=== PATIENT | male | born 1945 | race Caucasian/White ===

== ENCOUNTER 2017-03-20 02:21 | Emergency (ER) | payer MEDICARE, OTHER ==
[~2017-03-20] VITALS: Ht 180.3 cm; Wt 102.3 kg
[~2017-03-20 02:21] MED LIST: ASP81TEC PO; GLYB2.5T5 PO; HCTZ25 PO; MTF850T PO; SIMV40TA5 PO; [UNRECOGNIZED DRUG - CODE] PO
[2017-03-20 02:24] VITALS: BP 161/97; PULSE 84; RESP 16; O2SAT 99
--- NOTE | 2017-03-20 02:35 | ED.REPORT ---
HPI-Abd Pain M 40 and Over Date of Service March 20, 2017 ED Provider: William Henry MD Pt is a 71 y.o. male with a hx of kidney stones, DM, and HTN who presents to the ED c/o severe right sided flank pain onset 1 hour prior to arrival. Pt denies fever, dysuria, nausea, and vomiting. Nursing Notes Stated Complaint: POSSIBLE KIDNEY STONES Chief Complaint: Male Abdominal Pain Nursing Notes Reviewed: Yes Allergies: Coded Allergies: No Known Allergies (Verified , 10/22/13) Scheduled Glyburide (Glyburide) 2.5 Mg Tablet 2.5 MG PO BIDAC Metformin (Metformin) 850 Mg Tablet 850 MG PO BID Simvastatin (Simvastatin) 40 Mg Tablet 40 MG PO HS Tamsulosin (Flomax) 0.4 Mg Capsule 0.4 MG PO DAILY Telmisartan (Micardis) 40 Mg Tablet 40 MG PO DAILY Scheduled PRN Hydrocodone-Acetaminophen 5-300 mg (Hydrocodone-Acetaminophen 5-300 mg) 1 Each Tablet 1 TABLET PO Q4H PRN PRN For Pain Ondansetron (Ondansetron) 4 Mg Tablet 4 MG PO Q4H PRN PRN For Nausea General Time Seen by MD: 02:33 Chief Complaint Flank pain right Hx Obtained From: Patient Arrived By: Walk-in Sudden in Onset?: Yes Onset Occurred: 1 - 4 hours ago Symptom Duration: Since onset Location: : Flank right Quality: Painful Severity: Current: Severe Similar Sx Previous: Yes Past Medical History Past Medical History Kidney stones Lithotripsy Reports: Diabetes mellitus, Hypertension Past Surgical History Knee surgery Reports: Appendectomy, Cholecystectomy Smoking History Never Smoker Social History Alcohol Use: Denies alcohol use Drug Use: Denies drug use Review of Systems Constitutional: Denies: Fever GI: Denies: Nausea, Vomiting Male: Reports Flank pain, Denies Dysuria Complete sys rev & neg: except as marked. Physical Exam Initial Vital Signs Vital Signs (First) Date Time Temp Pulse Resp B/P Pulse Ox O2 Delivery O2 Flow Rate FiO2 03/20/17 02:24 36.3 84 16 161/97 99 Room Air Initial VS: Reviewed, Vital signs abnormal General/Constitutional: Awake, Alert, Well appearing, Well developed, Well hydrated, Well nourished, Not toxic appearing Appearance / Presentation: Positive: In pain, Uncomfortable Respiratory / Chest: Atraumatic, Breath sounds NL, Breath sounds = bilat, No respiratory distress Cardiovascular: Heart rate NL, Regular rhythm, Heart sounds NL, Peripheral circulation NL Abdomen: Atraumatic, Soft, No distention Tenderness/Guarding/Rebound: Positive: Tender RLQ... Back: Atraumatic Right CVA tenderness Interpretation & Diagnostics Lab Results Interpretation Result Diagram: 03/20/17 0250 03/20/17 0250 Test 03/20/17 02:50 White Blood Count 9.5th/mm3 (3.8-10.1) Red Blood Count 4.90mil/mm3 (4.40-5.80) Hemoglobin 13.8g/dL (13.8-17.2) Hematocrit 41.9% (41.0-50.0) Mean Corpuscular Volume 85.5fL (81-100) Mean Corpuscular Hemoglobin 28.2pg (27.0-35.0) Mean Corpuscular Hemoglobin Concent 32.9% (32.0-37.0) Red Cell Distribution Width 14.4% (12.3-15.4) Platelet Count 205bil/L (150-400) Neutrophils (%) (Auto) 64.1% (40-74) Lymphocytes (%) (Auto) 23.3% (14-46) Monocytes (%) (Auto) 8.4% (4-12) Eosinophils (%) (Auto) 3.2% (0-5) Basophils (%) (Auto) 0.8% (0-3) Sodium Level 137mEq/L (134-144) Potassium Level 3.8mEq/L (3.5-5.2) Chloride Level 101mEq/L (97-108) Carbon Dioxide Level 20mmol/L (18-29) Blood Urea Nitrogen 19mg/dL (8-27) Creatinine 1.31mg/dL (0.76-1.27) Estimat Glomerular Filtration Rate 57mL/min (>59) Glucose Level 216mg/dL (60-99) Calcium Level 9.3mg/dL (8.5-10.1) Magnesium Level 1.8mg/dL (1.6-2.6) Total Bilirubin 0.3mg/dL (0.0-1.2) Aspartate Amino Transf (AST/SGOT) 16U/L (0-50) Alanine Aminotransferase (ALT/SGPT) 18U/L (0-44) Alkaline Phosphatase 79U/L (25-160) Total Protein 7.5g/dL (6.4-8.4) Albumin 4.3g/dL (3.4-5.0) Lipase 39U/L (13-60) Hold Chopra Top Tube Received (Received) Lab values outside NL range: no clinical significance. Lab Results Interpretation: Mildly elevated nonfasting glucose, mildly elevated creatinine CT Abd / Pelvis Interpretation CONCLUSION: Bilateral nephrolithiasis. 2mm obstructing stone in the proximal right ureter with associated moderate right hydronephrosis. Radiologist: Lex Fishman MD Re-Eval/Medical Decision Med Decision/Clinical Course 71-year-old male with history of kidney stones presents with right flank pain. He has a 2 mm obstructing stone in the proximal right ureter. He was treated with pain and nausea medication and tamsulosin. He will be discharged home. He will strain his urine. He will follow up with urology as needed for worsening symptoms or if the stone does not pass.. Source of Hx: Old records Time of Eval: 04:34 Re-Evaluation/Progress Note: Pt rechecked. Pt is feeling comfortable. Discussed imaging and plan for discharge, pt understands and agrees with plan. Counseled Regarding: Diagnosis, Lab results, Need for follow-up, When/why to return to ED Discharge & Departure Primary Impression: Ureteral stone Additional Impression: Nephrolithiasis Disposition: Home Vital Signs - All Vital Signs Date Time Temp Pulse Resp B/P Pulse Ox O2 Delivery O2 Flow Rate FiO2 03/20/17 05:12 77 18 154/92 98 Room Air 03/20/17 02:24 36.3 84 16 161/97 99 Room Air )( All Prior VS Reviewed: Yes Condition: Improved Patient Instructions: Renal Colic (ED) Additional Instructions: You have a small stone at the upper end of the right ureter. It is small enough it might pass on its own. Vicodin for pain. Ondansetron for nausea. Flomax to help relax the ureter. Drink plenty of fluids. If it doesn't pass you will need to follow up with urology. Referrals: Kwesi Almaraz MD (PCP) Riaz Ruiz MD Scribe Attestation Portions of this note were transcribed by Taco Pardo. Dr.Leibrand Catie personally performed the history, physical exam and medical decision-making; I reviewed and confirmed the accuracy of the information in the transcribed note. Signed by: Bronson Macias, 03/20/17 and 0437 copies to: Kwesi Almaraz MD, Howard L MD March 20, 2017 02:35 TACO PARDO March 20, 2017 02:40
[2017-03-20] MEDS ORDERED: Ketorolac 15 mg/mL Inj IVPUSH ONE (02:40)
[2017-03-20] MEDS ORDERED: HYDROmorphone 0.5 mg/0.5 mL iSecure Syringe IVPUSH PRN (02:40)
[2017-03-20] MEDS ORDERED: Ondansetron 2 mg/mL 2 mL Inj IVPUSH PRN (02:40)
[2017-03-20 03:00] LABS: BASOPHILS % (AUTO) 0.8 % (0-3); EOSINOPHILS % (AUTO) 3.2 % (0-5); MONOCYTES % (AUTO) 8.4 % (4-12); Mean Corpuscular Hemoglobin 28.2 pg (27.0-35.0); Mean Corpuscular Volume 85.5 fL (81-100); NEUTROPHILS % (AUTO) 64.1 % (40-74); Platelet Count 205 bil/L (150-400)
[2017-03-20 03:18] LABS: Magnesium 1.8 mg/dL (1.6-2.6)
[2017-03-20] MEDS ORDERED: _HYDROcodone/APAP 5-325 mg Tablet PO PRN (04:35)
[2017-03-20] MEDS ORDERED: TAMS0.4C98 PO ×2 (04:40→16:42)
[2017-03-20] MEDS ORDERED: _Ondansetron ODT 4 mg Tablet PO PRN (04:40)
[2017-03-20] MEDS ORDERED: ONDA4SOL PO (04:40)
[2017-03-20 05:12] VITALS: BP 154/92; PULSE 77; RESP 18; O2SAT 98
--- NOTE | 2017-03-20 08:09 | DRSVH ---
PROCEDURE: CT KUB ([id number]) INDICATIONS: right flank pain TECHNIQUE: Noncontrast 5 mm thick sections acquired from the diaphragms to the symphysis. 5 mm thick coronal an d sagittal reformats were then performed. For radiation dose reduction, the following was used: aut omated exposure control, adjustment of mA and/or kV according to patient size. COMPARISON: [facility], CT, KUB - CT ([facility]), 12/16/2014, 14:22. FINDINGS: Image quality: Excellent. Lung bases: Lung bases are clear. Heart size is normal. Urinary system: Both kidneys are normal in size. In the left kidney there is a 2-3 mm stone inferio rly centrally and nonobstructing. In the right kidney in the upper pole centrally and nonobstructing is a 4.5 mm stone. At the midpole nonobstructing is a 5 mm stone. At the right ureterovesical junctio n is a 3 mm stone causing mild right hydronephrosis and proximal hydroureter as well as some strandin g around the right kidney.. Both ureters appear non-dilated throughout their expected courses. Blad estela wall thickness is hypertrophied; no calcified bladder stones. Prostate is enlarged with prominen t calcifications. Other solid organs: Liver and spleen are normal in size. Gallbladder has been removed. Pancreas is normal in contours. No adrenal nodules. Peritoneum and bowel: Unenhanced bowel loops demonstrate normal wall thickness and caliber. No free fluid or air. Nodes and vessels: No retroperitoneal or mesenteric adenopathy by size criteria. Aorta and inferior vena cava are normal in caliber. Abdominal wall: No ventral hernias. Pelvis: No free pelvic fluid. No inguinal hernias or adenopathy. Bones: No suspicious bony lesions. No vertebral body compression fractures. IMPRESSION: 1. Obstruction is again occurring at the right renal pelvis ureter junction. This time by 3 mm stone. 2. Within the right kidney are 2 central nonobstructing stones of approximately 5 mm. On the left is a central nonobstructing stone approximately 3 mm. 3. Bladder wall hypertrophy of prostate enlargement as before and unchanged. Previous cholecystectomy . Dictated by: Kevon Fine M.D. on 03/20/2017 at 7:55 Approved by: Kevon Fine M.D. on 03/20/2017 at 8:07
[2017-03-20] MEDS ORDERED: GLYB2.5T4 PO (16:42)
[2017-03-20] MEDS ORDERED: ONDA-53 PO (16:42)
[2017-03-20] MEDS ORDERED: METF850T2 PO (16:42)
[2017-03-20] MEDS ORDERED: TELM40TA PO (16:42)
[2017-03-20] MEDS ORDERED: HYDR-3090 PO (16:42)
[2017-03-20] MEDS ORDERED: SIMV40TA5 PO (16:42)
== END 2017-03-20 05:13 | disposition home or self-care (01) ==
LOC: SED 02:21
DX: N13.2 Hydronephrosis with renal and ureteral calculous obstruction (principal); E11.9 Type 2 diabetes mellitus without complications; I10 Essential (primary) hypertension; Z87.442 Personal history of urinary calculi; Z79.84 Long term (current) use of oral hypoglycemic drugs
CPT/HCPCS: 36415; 74176; 80053; 83690; 83735; 85025; 96361; 96374; 96375; 99285; J1170; J1885; J2405

== ENCOUNTER 2017-03-22 13:14 | Day surgery (SDC) | payer MEDICARE, OTHER ==
[~2017-03-22] VITALS: Ht 180.3 cm; Wt 102.0 kg
[2017-03-22] VITALS (8 sets, daily range): BP systolic 127–146; BP diastolic 77–87; PULSE 70–95; RESP 13–16; O2SAT 93–98
[~2017-03-22 13:14] MED LIST changes: -ASP81TEC PO; +Acetaminophen IV 1,000 MG in IV Premix 1 EACH IV ONE; +CeFAZolin Inj 2 GM in IV Premix 1 EACH IV ONE; +GLYB2.5T4 PO; -GLYB2.5T5 PO; -HCTZ25 PO; +HYDR-3090 PO; +Lactated Ringer's 1,000 ML IV SCH; +METF850T2 PO; -MTF850T PO; +ONDA-53 PO; +TAMS0.4C98 PO; +TELM40TA PO; -[UNRECOGNIZED DRUG - CODE] PO
[2017-03-22] MEDS ORDERED: fentaNYL-PF 50 mCg/mL 2 mL Inj ONE (13:15)
[2017-03-22] MEDS ORDERED: EPHEDrine/NS 5 mg/mL 5 mL Syringe ONE (13:15)
[2017-03-22] MEDS ORDERED: Ondansetron 2 mg/mL 2 mL Inj ONE (13:15)
[2017-03-22] MEDS ORDERED: Propofol 10,000 mCg/mL 20 mL Inj ONE (13:15)
[2017-03-22] MEDS ORDERED: Phenylephrine 10,000 mCg/mL Inj ONE (13:15)
--- NOTE | 2017-03-22 13:34 | DRSVH ---
PROCEDURE: X-RAY KUB ([id number]) INDICATIONS: KIDNEY STONE TECHNIQUE: One view of the abdomen acquired. COMPARISON: [facility], CR, XR KUB, 03/20/2017, 10:19. [facility], CT, CT KU B, 03/20/2017, 2:58. FINDINGS: Surgical changes and devices: Cholecystectomy clips Bowel: Bowel gas pattern is normal. Soft tissues: Faint calcifications projecting over the kidneys bilaterally as was seen on prior exam. No definite stones project over the expected course of the ureters. Prostate calcifications are note d as well as left iliac bone island. Visualized solid organ contours appear normal in size. Bones: No suspicious bony lesions. IMPRESSION: 1. Small bilateral renal stones unchanged compared to the prior examination. No definite new radiopa que renal stone seen. Dictated by: Markus Ryan RRAbimbola Interpreted: Kevon Fine MD on 03/22/2017 at 13:32 Transcribed by: MARINA on 03/22/2017 at 13:33 Approved by: Kevon Fine M.D. on 03/22/2017 at 13:54
[2017-03-22] MEDS ORDERED: CeFAZolin Inj 2 gm / 50mL D5W IV ONE (13:43)
[2017-03-22] MEDS ORDERED: Lactated Ringer's 1,000 ML IV ONE (14:00)
--- NOTE | 2017-03-22 14:58 | PCM.HPANE ---
Patient Data Date of Service: March 22, 2017 Surgeon Admitting Provider: Attending Provider:Riaz Ruiz MD Primary Care Physician:Kwesi Almaraz MD Other Provider:Kadie Harrison Anesthesia Reason for Visit Right Ureteral Stone Ht/WT & BMI Height (Feet): 5 Height (Inches): 11.00 Weight (Kilograms): 102.050 Body Mass Index 31.00 Allergies Coded Allergies: No Known Allergies (Verified , 10/22/13) Past Anesthesia History Anesthesia History: Denies:: Abnormal Airway, Anesthesia Reactions, Difficult Intubation, Fam Anesthesia Reaction, Fam Malignant Hypertherm, Malignant Hyperthermia Diabetes History Hx Diabetes?: Yes Type of Diabetes: Type II Glycemic Control: Oral Medication MRSA MRSA: No Medications Blood Thinner: Aspirin Hypertension Medication: Yes Home Meds Incl Beta Hali: No Reported Medications Hydrocodone-Acetaminophen 5-300 mg 1 Each Tablet1 Tablet PO Q4H PRN For Pain Ref 0 03/20/17 Glyburide 2.5 Mg Tablet2.5 Mg PO BIDAC 30 Days Ref 0 03/20/17 Tamsulosin (Flomax)0.4 Mg Capsule0.4 Mg PO DAILY Ref 0 03/20/17 Telmisartan (Micardis)40 Mg [id number] Mg PO DAILY 03/20/17 Simvastatin 40 Mg [id number] Mg PO HS 30 Days Ref 0 03/20/17 Ondansetron 4 Mg Tablet4 Mg PO Q4H PRN For Nausea 03/20/17 Metformin 850 Mg [id number] Mg PO BID Ref 0 03/20/17 Discontinued Reported Medications Glyburide-Expunged Drug, Do Not Renew! 2.5 Mg Tablet2.5 Mg PO 07/17/13 Aspirin-Expunged Drug, Do Not Renew! (Aspirin EC-Expunged Drug, Do Not Renew!) 81 Mg Vuvrvf25 Mg PO DAILY DO NOT CRUSH 07/17/13 TELMISARTAN-Expunged Drug, Do Not Renew! (Micardis-Expunged Drug, Do Not Renew!) 40 Mg Tab40 Mg PO DAILY 07/17/13 HCTZ-Expunged Drug, Do Not Renew! (Hydrodiuril-Expunged Drug, Do Not Renew!)25 Mg Xgxhxy26 Mg PO DAILY 07/17/13 Simvastatin-Expunged Drug, Choose New Med! 40 Mg Xtqmfq85 Mg PO HS 07/17/13 Metformin-Expunged Drug, Do Not Renew! 850 Mg Tablet1 Tab PO DAILY #30 TAB TAKE WITH EVENING MEAL 07/17/13 Discontinued Scripts Ondansetron 4 Mg/5 Ml Solution4 Mg PO DAILY #4 ML Prov:William Henry MD 03/20/17 Tamsulosin (Flomax)0.4 Mg Capsule0.4 Mg PO DAILY #4 CAPSULE Ref 0 Prov:William Henry MD 03/20/17 History History of ENT Problems?: Yes HEENT History: Positive for:: Hearing Problem Denies:: Abnormal Airway Cataracts Difficult Intubation Dysphagia Glaucoma Sinus Problem Denture Type: None Teeth Condition: Within Normal Limits Hx of Heart Problems?: Yes Cardiovascular History: Positive for:: Edema Hypertension Denies:: AICD Atrial Fibrillation Cardiac Surgery Chest Pain Congestive Heart Failure Heart Murmur Irregular Heartbeat Pacemaker Thrombophlebitis Valvular Heart Disease Hx of Respiratory Problem?: No Respiratory History: Denies:: Asthma COPD Cough Hemoptysis Oxygen Administration Pneumonia Tuberculosis Use of C-PAP Machine Hx Neurologic Problems?: No Neurological History: Positive for:: Dizziness Denies:: Alzheimer's Disease CVA Dementia Headaches Multiple Sclerosis Parkinson's Disease Seizures TIA Hx of GI Problems?: Yes Hx of Problems?: Yes Genitourinary History: Positive for:: Kidney Stones (right ureteral ) Denies:: Urinary Tract Infection Male Hx: Denies:: Prostate Problems Scrotal Mass Testicular Surgery Skin History: Denies:: History Skin Disorders? 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) Osteoarthritis Denies:: Back Injury Fibromyalgia Musculoskeletal Trauma Myasthenia Gravis Rheumatoid Arthritis Systemic Lupus Hx of Psycho/Social Problems?: No Psycho Social History: Denies:: Anxiety Bipolar Disorder Hx Depression Suicide Attempt Hx Surgeries?: Yes (right partial knee, raysa, appe) Hx Any Other Health Problems?: Yes Other History: Positive for:: Cancer (BCC facial) Hospitalization Denies:: Endocrine Disease Thyroid Disease History Blood Transfusions: Positive for:: Accept Blood Products? Denies:: Blood Transfusions Hx Diabetes: Yes Hx Alcohol Use: NoHx Substance Use: No Smoking Status: Never Smoker Have You Smoked inLast 12 mo: No Stop/Bang P-Blood Pressure: treated: Yes B- Body Mass Index > 35 kg/m2: No A- Age over 50: Yes N- Neck Large Circumference: No G- Gender Male: Yes GAMALIEL Risk Assessment: High Risk, =/>3 Yes GAMALIEL Category 4 OutPt Procedure: Yes Risk Assessment Category Category 1A: Patient has history of documented sleep apnea, and HAS NOT received any narcotic, sedative or anesthesia administration during this stay. Category 1B: Patient has history of documented sleep apnea, and HAS received any narcotic , sedative or anesthesia administration during this stay Category 2: Patient has SUSPECTED Obstructive Sleep Apnea, and HAS received any narcotic , sedative or anesthesia administration during this stay. Category 3: Patient has SUSPECTED Obstructive Sleep Apnea and HAS NOT received narcotic, sedative or anesthesia administration during this stay. Category 4: Outpatient in Procedural Areas with known sleep apnea or who screen positive for High Risk via the STOP/BANG questionnaire. Exam Exam Vital Signs Vital Signs Date Time Temp Pulse Resp B/P Pulse Ox O2 Delivery O2 Flow Rate FiO2 03/22/17 13:51 36.6 70 14 146/78 96 Room Air General Appearance: Alert, Oriented X3, Cooperative, No Acute Distress HEENT/AIRWAY: MP 2 Lungs: Clear to Auscultation, Normal Air Movement Heart: Exam Unremarkable, Regular Rate/Rhythm, No Murmurs/Rubs/Gallops Meds/Labs/Diagnostics Admission Meds Current Medications Lactated Ringer's (Lr) 1,000 ml @ ud STK-MED ONCE IV Last administered on t 14:00; Start 03/22/17 at 14:00; Stop 03/22/17 at 14:01; Status DC Plan Impression Patient chart reviewed, patient interviewed and anesthestic plan with risks, benefits, and alternatives discussed, and informed consent obtained. NPO per Anesth. Guidelines: Yes ASA Physical Status: ASA2 Mod Systemic Disease Anesthetic Plan: GA Bene/Risks/Altern/Consents: Yes HP Complete Prior to Induction: Yes Juarez Yap MD March 22, 2017 14:58
[2017-03-22] MEDS ORDERED: Lactated Ringer's 1,000 ML IV SCH (16:18)
[2017-03-22] MEDS ORDERED: Lactated Ringer's 500 ML IV PRN (16:18)
[2017-03-22] MEDS ORDERED: fentaNYL-PF 50 mCg/mL 2 mL Inj IVPUSH PRN (16:20)
[2017-03-22] MEDS ORDERED: Phenylephrine 10,000 mCg/mL Inj IVPUSH PRN (16:20)
[2017-03-22] MEDS ORDERED: hydrALAZINE 20 mg/mL Inj IVPUSH PRN (16:20)
[2017-03-22] MEDS ORDERED: Ondansetron 2 mg/mL 2 mL Inj IVPUSH PRN (16:20)
[2017-03-22] MEDS ORDERED: Labetalol 5 mg/mL 4 mL Inj IV PRN (16:20)
[2017-03-22] MEDS ORDERED: EPHEDrine Sulfate 50 mg/mL Inj IVPUSH PRN (16:20)
[2017-03-22] MEDS ORDERED: Atropine 0.4 mg/mL Inj IVPUSH PRN (16:20)
[2017-03-22] MEDS ORDERED: EPHEDrine Sulfate 50 mg/mL Inj IM PRN (16:20)
[2017-03-22] MEDS ORDERED: HYDROmorphone 1 mg/mL Inj IVPUSH PRN (16:20)
[2017-03-22] MEDS ORDERED: Furosemide 10 mg/mL 2 mL Inj IV ONE (16:50)
--- NOTE | 2017-03-23 | OP ---
[address] [address] OPERATIVE REPORT PATIENT: GEOFFREY MORLEY : 1945 MR#: [id number] ADMIT: 03/22/2017 JOB ID: [id number] DATE OF SURGERY: 03/22/2017 SURGEON: Riaz Ruiz MD PREOPERATIVE DIAGNOSIS(ES): 1. Right renal colic. 2. A 3 x5 mm right mid ureteral calculus. 3. Right nephrolithiasis. 4. History of nephrolithiasis. POSTOPERATIVE DIAGNOSIS(ES): 1. Right renal colic. 2. A 3 x5 mm right mid ureteral calculus. 3. Right nephrolithiasis. 4. History of nephrolithiasis. OPERATION PERFORMED: 1. Cystoscopy, right retrograde pyelogram. 2. Right extracorporeal shock wave lithotripsy (maximal power of 5.0 x 2500 shocks. ANESTHESIOLOGIST: Juarez Yap MD ANESTHESIA: General. FINDINGS: The stone could not be identified with certainty with plain radiography or intraoperative fluoroscopy during patient respiration. Therefore, the patient was repositioned in semilithotomy and subsequent retrograde pyelogram identified the stone allowing localization and subsequent treatment. PROCEDURE SUMMARY: The patient was positioned supine and was administered general anesthesia. The above-described stone was sought via radiography and intraoperative fluoroscopy with the findings as described above. Next, he was repositioned in semi lithotomy and lower abdomen, genitalia, and groin were prepped and draped in sterile fashion. 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 External sphincter was intact. Prostate 4-4.5 cm length with very elevated median bar. Bladder 1+ trabeculation. Normal orifices bilaterally. There was a tiny evonne of clot lying dependently on the floor of the bladder, otherwise unremarkable. A 5-Cymro Pollack catheter was then inserted in the right ureteral orifice and advanced appropriate 5 cm. Retrograde pyelography was then performed and identified an abrupt cut-off with proximal hydronephrosis adjacent to the L3-L4 interspace. The catheter was secured to the penile glans with an OpSite. The stone was further localized. Lithotripsy was commenced at minimal power level for a total of 200 shocks. A pause was then performed for 2 minutes after which lithotripsy was again commenced. The location of the stone was relocalized numerous times throughout the case with intermittent retrograde pyelography. At 2500 shocks, contrast seemed to move fairly freely through the treated area, save for probable mucosal and ureteral wall edema in the region. The patient showed evidence of adequate contrast clearance from the upper tract. Treatment was then halted and the patient was repositioned in supine, was awakened, transferred to the [facility], and transferred to recovery in stable condition. He tolerated the procedure well.
--- NOTE | 2017-03-23 07:28 | PCM.ANEP1 ---
Post Anesthesia Phase 1 PACU Phase 1 Assessment Date of Service: March 22, 2017 Vital Signs 1715 BP 128/79 HR 91 Temp 36.6 C RR 16 SpO2 97% on RA Anesthetic Administered: GA Level of Alertness: Awake, talking TRISTAN's with Equal Strength: Yes Pain: No Nausea or Vomiting: No Oxygen Delivery: Room Air Lungs: Clear to Auscultation, Normal Air Movement Dermatome Level: Full Sensation Complications: No Follow up Care: No Juarez Yap MD March 23, 2017 07:28
== END 2017-03-22 23:59 | disposition home or self-care (01) ==
LOC: SAS 13:14
PROVIDERS: ATTEND Specialist
DX: N20.2 Calculus of kidney with calculus of ureter (principal); I10 Essential (primary) hypertension; E11.9 Type 2 diabetes mellitus without complications; M19.90 Unspecified osteoarthritis, unspecified site; Z85.828 Personal history of other malignant neoplasm of skin; Z79.84 Long term (current) use of oral hypoglycemic drugs; Z79.82 Long term (current) use of aspirin; Z96.652 Presence of left artificial knee joint; Z87.442 Personal history of urinary calculi
CPT/HCPCS: 50590; 52005; 74000; J0131; J0690; J1940; J2370; J2405; J3010; J7120

== ENCOUNTER 2017-06-06 07:10 | Emergency (ER) | payer MEDICARE, OTHER ==
[~2017-06-06] VITALS: Ht 180.3 cm; Wt 104.5 kg
[~2017-06-06 07:10] MED LIST changes: -Acetaminophen IV 1,000 MG in IV Premix 1 EACH IV ONE; -CeFAZolin Inj 2 GM in IV Premix 1 EACH IV ONE; -Lactated Ringer's 1,000 ML IV SCH
[2017-06-06 07:13] VITALS: BP 172/97; PULSE 73; RESP 17
[2017-06-06] MEDS ORDERED: 0.9% Sodium Chloride 1,000 ML IV ONE (07:42)
--- NOTE | 2017-06-06 07:42 | ED.REPORT ---
HPI-Abd Pain M 40 and Over Date of Service Jun 06, 2017 ED Provider: Vinh Nunn MD The pt is a 72 y/o male w/ a hx of diabetes mellitus, HTN and kidney stones presenting to the ED complaining of R sided flank pain onset 0300. He has also been experiencing vomiting. The pt last was seen for a R ureteral stone two and a half months ago on March 20 , and had it removed two days after that. Nursing Notes Stated Complaint: POSS KIDNEY STONES Chief Complaint: Male Abdominal Pain Nursing Notes Reviewed: Yes Allergies: Coded Allergies: No Known Allergies (Verified , 10/22/13) Scheduled Glyburide (Glyburide) 2.5 Mg Tablet 2.5 MG PO BIDAC Metformin (Metformin) 850 Mg Tablet 850 MG PO BID Simvastatin (Simvastatin) 40 Mg Tablet 40 MG PO HS Tamsulosin (Flomax) 0.4 Mg Capsule 0.4 MG PO DAILY Tamsulosin (Flomax) 0.4 Mg Capsule 0.4 MG PO DAILY Telmisartan (Micardis) 40 Mg Tablet 40 MG PO DAILY Scheduled PRN Hydrocodone-Acetaminophen 5-300 mg (Hydrocodone-Acetaminophen 5-300 mg) 1 Each Tablet 1 TABLET PO Q4H PRN PRN For Pain Hydrocodone-Acetaminophen 5-325 mg (Hydrocodone-Acetaminophen 5-325 mg) 1 Each Tablet 1 TABLET PO Q4H PRN PRN For Pain Ibuprofen (Ibuprofen) 800 Mg Tablet 800 MG PO TID PRN PRN For Pain Ondansetron (Ondansetron) 4 Mg Tablet 4 MG PO Q4H PRN PRN For Nausea General Time Seen by MD: 07:40 Chief Complaint Flank pain right Hx Obtained From: Patient Arrived By: Walk-in Sudden in Onset?: Yes Onset Occurred: 5 - 8 hours ago Symptom Duration: Since onset Location: : Flank right Recent Healthcare: No recent hospitalization, Recent doctor visit Similar Sx Previous: Yes Risk Factors )( AAA Risk Stratification Hypertension Risk factors reviewed Past Medical History Past Medical History Kidney stones Lithotripsy Reports: Diabetes mellitus, Hypertension Past Surgical History Knee surgery Reports: Appendectomy, Cholecystectomy Smoking History Never Smoker Social History Alcohol Use: Denies alcohol use Drug Use: Denies drug use Ambulatory Status Independent Review of Systems GI: Reports: Vomiting Male: Reports Flank pain (R side) Complete sys rev & neg: except as marked. Physical Exam Initial Vital Signs Vital Signs (First) Date Time Temp Pulse Resp B/P Pulse Ox O2 Delivery O2 Flow Rate FiO2 06/06/17 07:13 36 73 17 172/97 Room Air 06/06/17 11:28 98 Initial VS: Reviewed Head / Eyes: Atraumatic, Normocephalic, PERRL ENT: Mucous membranes moist, Conjunctiva normal, No scleral icterus Neck: Supple, Non-tender, Full range of motion Extremities: Vascular intact, Neuro intact, No swelling, No tenderness Skin: Warm, Dry, No cyanosis Neurologic: Alert, Oriented, Nonfocal Psychiatric: Mood/affect normal, Behavior normal, Normal thought content General/Constitutional: Awake, Alert Respiratory / Chest: Atraumatic, Breath sounds NL, Breath sounds = bilat, No respiratory distress, No rales, No rhonchi, No wheezing Cardiovascular: Heart rate NL, Regular rhythm, Heart sounds NL, No gallop, No murmurs, No rubs Abdomen: Soft, No guarding, No rebound Diffuse R sided abdominal tenderness Back: Full range of motion, No CVA tenderness Interpretation & Diagnostics CT KUB 1. A 5 mm obstructing stone in the proximal right ureter causing mild right hydronephrosis and marked right perinephric stranding. 2. Nephrolithiasis bilaterally. 3. Mild concentric thickening of bladder wall combined with enlarged prostate suggesting bladder outlet obstruction. 4. Diverticulosis. No evidence for active diverticulitis. Dictated by: Annette Betancourt M.D. on 06/06/2017 at 9:10 Approved by: Annette Betancourt M.D. on 06/06/2017 at 9:32 Lab Results Interpretation Result Diagram: 06/06/17 0725 06/06/17 0725 Test 06/06/17 07:25 06/06/17 08:05 06/06/17 10:08 White Blood Count 13.5th/mm3 (3.8-10.1) Red Blood Count 4.95mil/mm3 (4.40-5.80) Hemoglobin 13.9g/dL (13.8-17.2) Hematocrit 41.9% (41.0-50.0) Mean Corpuscular Volume 84.6fL (81-100) Mean Corpuscular Hemoglobin 28.1pg (27.0-35.0) Mean Corpuscular Hemoglobin Concent 33.2% (32.0-37.0) Red Cell Distribution Width 13.9% (12.3-15.4) Platelet Count 200bil/L (150-400) Neutrophils (%) (Auto) 80.8% (40-74) Lymphocytes (%) (Auto) 10.7% (14-46) Monocytes (%) (Auto) 7.6% (4-12) Eosinophils (%) (Auto) 0.5% (0-5) Basophils (%) (Auto) 0.2% (0-3) Sodium Level 140mEq/L (134-144) Potassium Level 4.1mEq/L (3.5-5.2) Chloride Level 101mEq/L (97-108) Carbon Dioxide Level 21mmol/L (18-29) Blood Urea Nitrogen 23mg/dL (8-27) Creatinine 1.43mg/dL (0.76-1.27) Estimat Glomerular Filtration Rate 51mL/min (>59) Glucose Level 218mg/dL (60-99) Calcium Level 9.3mg/dL (8.5-10.1) Magnesium Level 1.6mg/dL (1.6-2.6) Total Bilirubin 0.4mg/dL (0.0-1.2) Aspartate Amino Transf (AST/SGOT) 15U/L (0-50) Alanine Aminotransferase (ALT/SGPT) 16U/L (0-44) Alkaline Phosphatase 83U/L (25-160) Total Protein 7.3g/dL (6.4-8.4) Albumin 4.1g/dL (3.4-5.0) Lipase 37U/L (13-60) Lactic Acid Level 1.8mmol/L (0.4-2.0) Urine Color Yellow (YELLOW) Urine Appearance Hazy (CLEAR,HAZY) Urine pH 5.0 (5.0-8.0) Urine Specific [place] 1.025 (1.003-1.035) Urine Protein Negativemg/dL (NEG,TRACE) Urine Glucose (UA) Negativemg/dL (NEGATIVE) Urine Ketones Negativemg/dL (NEGATIVE) Urine Occult Blood Small (NEGATIVE) Urine Nitrite Negative (NEGATIVE) Urine Bilirubin Negative (NEGATIVE) Urine Urobilinogen Normalmg/dL (NORMAL) Urine Leukocyte Esterase Large (NEGATIVE) Urine RBC 0-2/hpf (0-2) Urine WBC 11-50/hpf (0-5) Urine Epithelial Cells Occasional/hpf (NONE-MOD) Urine Crystals None seen (NONE SEEN) Urine Bacteria None/hpf (NONE-FEW) Urine Hyaline Casts None/lpf (NONE) Urine Granular Casts None seen (NONE SEEN) Urine Waxy Casts None seen (NONE SEEN) Urine Red Blood Cell Casts None seen (NONE SEEN) Urine White Blood Cell Casts None seen (NONE SEEN) Urine Mucus None seen (None Seen) Urine Trichomonas None seen (NONE SEEN) Urine Yeast None (NONE SEEN) Urinalysis Comment None Urine Culture Reflexed Indicated Re-Eval/Medical Decision Med Decision/Clinical Course 72-year-old male history of kidney stones presenting with right flank pain. He has a 5 mm stone right proximal ureter. He is in and out cath shows white blood cells, negative nitrates, no bacteria. Discussed with Dr. [facility] who did not think the patient's urine represented infection and recommended discharge home with [place] with follow-up with urology as an outpatient. She will be discharged home with plans to follow-up with urology as well as primary doctor in the next couple days. Advised to return if he has any worsening pain, fevers, nausea vomiting, any other new or worsening symptoms. Source of Hx: Old records Time of Eval: 11:20 Re-Evaluation/Progress Note: Pt rechecked. Informed pt of plan for treatment. Pt understands and agrees with plan for treatment. F/U instructions and RTER warnings given. All questions addressed. Consultation : Referral / Consult Name: [facility] Call Returned at: 10:30 Microbiology Supervisor: Will see patient, Will see in office, Agrees with eval Counseled Regarding: Diagnosis, Lab results, Need for follow-up, When/why to return to ED Discharge & Departure Primary Impression: Kidney stone Disposition: Home Vital Signs - All Vital Signs Date Time Temp Pulse Resp B/P Pulse Ox O2 Delivery O2 Flow Rate FiO2 06/06/17 11:28 70 14 168/90 98 Room Air 06/06/17 07:13 36 73 17 172/97 Room Air )( All Prior VS Reviewed: Yes Condition: Stable Patient Instructions: Kidney Stones (ED) Additional Instructions: Thank for you entrusting us with your care today. You were diagnosed with a kidney stone. There was no sign of infection. Use the Flomax as recommended and the Ibuprofen and Vicodin as needed for the pain. You can call the urologist today to make an appointment. Please return to the emergency department if you experience any worsening pain, fever, vomiting, or feel worse in any other way. I hope you feel better soon. Referrals: Kwesi Almaraz MD (PCP) [facility] Attestation Portions of this note were transcribed by Joseph Mcqueen. I, Dr. Nunn personally performed the history, physical exam and medical decision-making; I reviewed and confirmed the accuracy of the information in the transcribed note. Signed by: Bronson Sears, 06/06/17 and 5030. copies to: Kwesi Almaraz MD; [facility],Vinh Webster MD Jun 06, 2017 07:41 Joseph Mcqueen Jun 06, 2017 07:48
[2017-06-06] MEDS ORDERED: Ondansetron 2 mg/mL 2 mL Inj IVPUSH PRN (07:45)
[2017-06-06 07:54] LABS: BASOPHILS % (AUTO) 0.2 % (0-3); EOSINOPHILS % (AUTO) 0.5 % (0-5); MONOCYTES % (AUTO) 7.6 % (4-12); Mean Corpuscular Hemoglobin 28.1 pg (27.0-35.0); Mean Corpuscular Volume 84.6 fL (81-100); NEUTROPHILS % (AUTO) 80.8 % (40-74); Platelet Count 200 bil/L (150-400)
[2017-06-06 08:05] LABS: Magnesium 1.6 mg/dL (1.6-2.6)
[2017-06-06 08:22] LABS: APPEARANCE,URINE HAZY (CLEAR,HAZY); COLOR,URINE YELLOW (YELLOW); OCCULT BLOOD,URINE TRACE (NEGATIVE); UROBILINOGEN,URINE NORMAL (NORMAL)
[2017-06-06 10:28] LABS: APPEARANCE,URINE HAZY (CLEAR,HAZY); COLOR,URINE YELLOW (YELLOW); OCCULT BLOOD,URINE SMALL (NEGATIVE); UROBILINOGEN,URINE NORMAL (NORMAL)
--- NOTE | 2017-06-06 11:07 | DRSVH ---
PROCEDURE: CT KUB ([id number]) INDICATIONS: 72 year-old man with right flank pain and history of kidney stones. TECHNIQUE: Noncontrast 5 mm thick sections acquired from the diaphragms to the symphysis. 5 mm thick coronal an d sagittal reformats were then performed. For radiation dose reduction, the following was used: aut omated exposure control, adjustment of mA and/or kV according to patient size. COMPARISON: [facility], CT, KUB - CT (PN), 07/20/2009, 4:37. [facility], CT , KUB - CT (PNL), 12/16/2014, 14:22. [facility], CT, CT KUB, 03/20/2017, 2:58. FINDINGS: Image quality: Excellent. Lung bases: Lung bases are clear. Heart size is normal. There is a small hiatal hernia. Urinary system: There is a proximal right ureteral stone measuring [address] density 646 HU< most likely a struvite or cystine stone. Nonobstructive 4 mm stone seen in the right kidney. There is mil d hydronephrosis and marked perinephric stranding in right kidney. A small amount of perinephric flui d is present on the right kidney. A 2 mm stone is present in the inferior pole of the left kidney. No left hydronephrosis. Both kidneys are normal in size. A 2 cm exophytic nodule in the superior pole of the left kidney is most likely renal cyst. Bladder is semicontracted. There is mild bladder wall t hickening; no calcified bladder stones. Prostate is enlarged. Other solid organs: Liver and spleen are normal in size. Gallbladder is surgically absent. Pancrea s is normal in contours. No adrenal nodules. Peritoneum and bowel: Unenhanced bowel loops demonstrate normal wall thickness and caliber. There a re scattered colonic diverticula. No evidence for active diverticulitis. No free fluid or air. Nodes and vessels: No retroperitoneal or mesenteric adenopathy by size criteria. Aorta and inferior vena cava are normal in caliber. Abdominal wall: Tiny fat-containing umbilical hernia is noted. Pelvis: No free pelvic fluid. No inguinal hernias or adenopathy. Bones: A sclerotic focus in the left iliac bone is most likely a bone island. No vertebral body comp ression fractures. IMPRESSION: 1. A 5 mm obstructing stone in the proximal right ureter causing mild right hydronephrosis and marked right perinephric stranding. 2. Nephrolithiasis bilaterally. 3. Mild concentric thickening of bladder wall combined with enlarged prostate suggesting bladder outl et obstruction. 4. Diverticulosis. No evidence for active diverticulitis. Dictated by: Annette Betancourt M.D. on 06/06/2017 at 9:10 Approved by: Annette Betancourt M.D. on 06/06/2017 at 9:32
[2017-06-06] MEDS ORDERED: HYDR-4003 PO (11:10)
[2017-06-06] MEDS ORDERED: IBUP800T28 PO (11:10)
[2017-06-06] MEDS ORDERED: TAMS0.4C98 PO (11:19)
[2017-06-06 11:28] VITALS: BP 168/90; PULSE 70; RESP 14; O2SAT 98
== END 2017-06-06 11:31 | disposition home or self-care (01) ==
LOC: SED 07:10
DX: N13.2 Hydronephrosis with renal and ureteral calculous obstruction (principal); E11.9 Type 2 diabetes mellitus without complications; I10 Essential (primary) hypertension; Z87.442 Personal history of urinary calculi; Z90.49 Acquired absence of other specified parts of digestive tract; Z79.84 Long term (current) use of oral hypoglycemic drugs
CPT/HCPCS: 36415; 74176; 80053; 81000; 83605; 83690; 83735; 85025; 87086; 87088; 96361; 96374; 96375; 99285; J1885; J2405; J7030

== ENCOUNTER 2017-06-08 09:44 | Emergency (ER) | payer MEDICARE, OTHER ==
[~2017-06-08] VITALS: Ht 180.3 cm; Wt 104.5 kg
[~2017-06-08 09:44] MED LIST changes: +HYDR-4003 PO; +IBUP800T28 PO
[2017-06-08 09:47] VITALS: BP 167/98; PULSE 82; RESP 18; O2SAT 98
[2017-06-08] MEDS ORDERED: 0.9% Sodium Chloride 1,000 ML IV ONE (10:01)
[2017-06-08] MEDS ORDERED: HYDROmorphone 0.5 mg/0.5 mL iSecure Syringe IVPUSH PRN (10:05)
[2017-06-08] MEDS ORDERED: Ondansetron 2 mg/mL 2 mL Inj IVPUSH ONE (10:05)
[2017-06-08] MEDS ORDERED: Ketorolac 15 mg/mL Inj IVPUSH ONE (10:05)
[2017-06-08 10:24] LABS: BASOPHILS % (AUTO) 0.2 % (0-3); EOSINOPHILS % (AUTO) 0.3 % (0-5); Mean Corpuscular Hemoglobin 28.2 pg (27.0-35.0); NEUTROPHILS % (AUTO) 78.8 % (40-74); Platelet Count 194 bil/L (150-400)
[2017-06-08 10:50] LABS: Magnesium 1.7 mg/dL (1.6-2.6)
--- NOTE | 2017-06-08 11:17 | ED.REPORT ---
HPI-Abd Pain M 40 and Over Date of Service Jun 08, 2017 ED Provider: Rocio Shell MD 72-year-old male past medical history previous kidney stones, and confirmed stone right ureter presents emergency department today with abdominal pain, nausea and vomiting. Patient was able to take prescribed oxycodone for pain last night at 8:00, however, this morning the patient states that he was nauseous and vomiting and was unable to keep down his morning dose of oxycodone. Since that time he has been in increased pain and continues vomiting. Pain is located along the lower right flank and radiates into the groin. Patient states that he was able to urinate this morning however there was obviously decreased flow. This fever, chills, shortness of breath, chest pain. Nursing Notes Stated Complaint: POSSIBLE KIDNEY STONE Chief Complaint: Male Abdominal Pain Nursing Notes Reviewed: Yes Allergies: Coded Allergies: No Known Allergies (Verified , 10/22/13) Scheduled Glyburide (Glyburide) 2.5 Mg Tablet 2.5 MG PO BIDAC Metformin (Metformin) 850 Mg Tablet 850 MG PO BID Simvastatin (Simvastatin) 40 Mg Tablet 40 MG PO HS Tamsulosin (Flomax) 0.4 Mg Capsule 0.4 MG PO DAILY Tamsulosin (Flomax) 0.4 Mg Capsule 0.4 MG PO DAILY Telmisartan (Micardis) 40 Mg Tablet 40 MG PO DAILY Scheduled PRN Hydrocodone-Acetaminophen 5-300 mg (Hydrocodone-Acetaminophen 5-300 mg) 1 Each Tablet 1 TABLET PO Q4H PRN PRN For Pain Hydrocodone-Acetaminophen 5-325 mg (Hydrocodone-Acetaminophen 5-325 mg) 1 Each Tablet 1 TABLET PO Q4H PRN PRN For Pain Ibuprofen (Ibuprofen) 800 Mg Tablet 800 MG PO TID PRN PRN For Pain Ondansetron (Ondansetron) 4 Mg Tablet 4 MG PO Q4H PRN PRN For Nausea Promethazine (Promethazine) 25 Mg Tablet 25 MG PO Q8H PRN PRN For Nausea General Time Seen by MD: 09:53 Chief Complaint Abdominal pain Hx Obtained From: Patient, Spouse Arrived By: Walk-in Sudden in Onset?: Yes Onset Occurred: 1 - 4 hours ago Context of Onset: After vomiting Symptom Duration: Since onset Location: : Flank right Quality: Aching, Burning, Painful Severity: Current: Pain level 8 out of 10 Recent Healthcare: Recent doctor visit Risk Factors )( AAA Risk Stratification Risk factors reviewed CAD Risk Stratification Risk factors reviewed TAD Risk Stratification Risk factors reviewed Past Medical History Past Medical History Kidney stones Lithotripsy Reports: Diabetes mellitus, Hypertension Past Surgical History Knee surgery Reports: Appendectomy, Cholecystectomy Smoking History Never Smoker Social History Alcohol Use: Denies alcohol use Drug Use: Denies drug use Ambulatory Status Independent Review of Systems Constitutional: Denies: Chills, Fever Respiratory: Denies: Pleuritic pain Cardiovascular: Denies: Chest pain GI: Reports: Abdominal pain, Nausea, Vomiting, Denies: Constipation, Diarrhea Complete sys rev & neg: except as marked. Physical Exam Initial Vital Signs Vital Signs (First) Date Time Temp Pulse Resp B/P Pulse Ox O2 Delivery O2 Flow Rate FiO2 06/08/17 09:47 36.4 82 18 167/98 98 06/08/17 13:49 Room Air Initial VS: Reviewed, Vital signs abnormal (elevated BP) Head / Eyes: Atraumatic, Normocephalic, PERRL ENT: Mucous membranes moist, Conjunctiva normal, No scleral icterus Neck: Supple, Non-tender, Full range of motion Extremities: Vascular intact, Neuro intact, No swelling, No tenderness Skin: Warm, Dry, No cyanosis Neurologic: Alert, Oriented, Nonfocal Psychiatric: Mood/affect normal, Behavior normal, Normal thought content General/Constitutional: Awake, Alert Respiratory / Chest: Atraumatic, Breath sounds NL, Breath sounds = bilat, No rales, No rhonchi, No wheezing Cardiovascular: Heart rate NL, Regular rhythm, Heart sounds NL, No murmurs, No rubs Abdomen: Atraumatic, Soft, No guarding, No rebound, BS normoactive Tenderness/Guarding/Rebound: Positive: Tender flank R Interpretation & Diagnostics Lab Results Interpretation Result Diagram: 06/08/17 1020 06/08/17 1020 Test 06/08/17 10:20 06/08/17 11:42 White Blood Count 11.1th/mm3 (3.8-10.1) Red Blood Count 4.76mil/mm3 (4.40-5.80) Hemoglobin 13.4g/dL (13.8-17.2) Hematocrit 40.0% (41.0-50.0) Mean Corpuscular Volume 84.0fL (81-100) Mean Corpuscular Hemoglobin 28.2pg (27.0-35.0) Mean Corpuscular Hemoglobin Concent 33.5% (32.0-37.0) Red Cell Distribution Width 13.8% (12.3-15.4) Platelet Count 194bil/L (150-400) Neutrophils (%) (Auto) 78.8% (40-74) Lymphocytes (%) (Auto) 12.6% (14-46) Monocytes (%) (Auto) 8.0% (4-12) Eosinophils (%) (Auto) 0.3% (0-5) Basophils (%) (Auto) 0.2% (0-3) Sodium Level 136mEq/L (134-144) Potassium Level 4.3mEq/L (3.5-5.2) Chloride Level 102mEq/L (97-108) Carbon Dioxide Level 19mmol/L (18-29) Blood Urea Nitrogen 21mg/dL (8-27) Creatinine 1.71mg/dL (0.76-1.27) Estimat Glomerular Filtration Rate 42mL/min (>59) Glucose Level 174mg/dL (60-99) Calcium Level 9.0mg/dL (8.5-10.1) Magnesium Level 1.7mg/dL (1.6-2.6) Total Bilirubin 0.5mg/dL (0.0-1.2) Aspartate Amino Transf (AST/SGOT) 15U/L (0-50) Alanine Aminotransferase (ALT/SGPT) 14U/L (0-44) Alkaline Phosphatase 81U/L (25-160) Total Protein 7.4g/dL (6.4-8.4) Albumin 4.0g/dL (3.4-5.0) Lipase 33U/L (13-60) Urine Color Yellow (YELLOW) Urine Appearance Hazy (CLEAR,HAZY) Urine pH 5.0 (5.0-8.0) Urine Specific [place] 1.030 (1.003-1.035) Urine Protein Negativemg/dL (NEG,TRACE) Urine Glucose (UA) Negativemg/dL (NEGATIVE) Urine Ketones Negativemg/dL (NEGATIVE) Urine Occult Blood Trace (NEGATIVE) Urine Nitrite Negative (NEGATIVE) Urine Bilirubin Negative (NEGATIVE) Urine Urobilinogen Normalmg/dL (NORMAL) Urine Leukocyte Esterase Moderate (NEGATIVE) Urine RBC 3-10/hpf (0-2) Urine WBC >50/hpf (0-5) Urine Epithelial Cells Occasional/hpf (NONE-MOD) Urine Crystals None seen (NONE SEEN) Urine Bacteria Few/hpf (NONE-FEW) Urine Hyaline Casts None/lpf (NONE) Urine Granular Casts None seen (NONE SEEN) Urine Waxy Casts None seen (NONE SEEN) Urine Red Blood Cell Casts None seen (NONE SEEN) Urine White Blood Cell Casts None seen (NONE SEEN) Urine Mucus None seen (None Seen) Urine Trichomonas None seen (NONE SEEN) Urine Yeast None (NONE SEEN) Urinalysis Comment None Urine Culture Reflexed Indicated Lab Results Interpretation: Labs consistent with stone in the right ureter. Creatinine elevated from previous. US Renal/Urinary Tract IMPRESSION: 1. A 7 mm stone in the superior pole of the right kidney. There is mild right hydronephrosis, unchanged from 06/06/2017. 2. A 1.2 cm cyst in right kidney. 3. Prostatic calcifications. Findings: Right Kidney: Hydronephrosis mild, Kidney stones present Re-Eval/Medical Decision Med Decision/Clinical Course Ultrasound was done here in the ED which showed mild nephrosis in the right kidney. This represents no change from his CT scan that was done 2 days ago. Urology was consulted and based on the results of the ultrasound suggested the patient continue to be managed as an outpatient and follow up with his appointment scheduled for 06/12. We will send him home on antinausea medication with the assumption that this will allow him to continue taking his pain medication as needed. The urologist agreed that if he returned to the emergency department at any point with complaints of pain and/or nausea that stent could be placed at that point, otherwise it would be and will let his office visit on 06/12. Consultation : Referral / Consult Name: Jessa Sethi MD Consulted With: Urology Call Returned at: 11:45 Steam Bone Press Tender: Will see in office, Agrees with eval, Agrees with plan Note: Due to the degree of nephrosis is reasonable for the patient to follow-up clinic within the next week and a stent could be placed at that time. If patient bounces back to the ER make him NPO and he will see the patient and place a stent at that time. Counseled Regarding: Diagnosis, Lab results, Need for follow-up, When/why to return to ED Discharge & Departure Primary Impression: Nephrolithiasis Additional Impressions: Renal colic on right side Hydronephrosis Hydronephrosis type: with renal calculous obstruction Qualified Code: N13.2 - Hydronephrosis with renal and ureteral calculous obstruction Disposition: Home Vital Signs - All Vital Signs Date Time Temp Pulse Resp B/P Pulse Ox O2 Delivery O2 Flow Rate FiO2 06/08/17 13:49 80 15 152/90 95 Room Air 06/08/17 09:47 36.4 82 18 167/98 98 )( All Prior VS Reviewed: Yes Condition: Stable Patient Instructions: Kidney Stones (ED) Additional Instructions: You came to the emergency department today with nausea/vomiting, right flank pain. As you are where the right flank pain as result of a kidney stone which is currently passing through the right ureter on its way to the bladder. From the imaging that we obtained today it appears that there is mild backup of fluid from the kidney as a result of this kidney stone, however there is no need to place a stent at this time. We were able to get your pain and nausea under control with antinausea medications and IV medications for pain. I understand that your pain was well controlled at home on oxycodone, but because of the vomiting this morning you were unable to hold down your pain medication, and for this reason you presented the emergency room. I suggest that you continue to take the antinausea medication at home so that your pain medication will be able to take effect. You will be prescribed Phenergan. You may 12.5mg to 25mg every 8 hours for nausea. Continue taking the oxycodone as previously prescribed. Please return to the emergency department in the event that you become nauseous despite medication, or experience intractable pain despite medication. Also if you find yourself unable to urinate, or experience painful fullness in your lower abdomen please return the emergency department at that point. Referrals: Kwesi Almaraz MD (PCP) Attending Statement Patient seen and examined Documentation as above Comfortable, not nauseated, pain-free at time of discharge we will try Phenergan with narcotics to help control the narcotic-related nausea. No evidence of sepsis or obstructive pyelonephritis copies to: Kwesi Almaraz MD, Adam J DO Jun 08, 2017 11:10 Rocoi Shell MD Jun 08, 2017 15:32
--- NOTE | 2017-06-08 11:50 | DRSVH ---
PROCEDURE: US RETROPERITONEAL SONOGRAM ([id number]) INDICATIONS: increased pain, known stone TECHNIQUE: Real-time scanning was performed of the kidneys and bladder, with image documentation. COMPARISON: [facility], CR, XR KUB, 03/22/2017, 13:26. [facility], CT, CT [facility]U B, 06/06/2017, 9:00. FINDINGS: Kidneys: There is a 7 mm stone in the superior pole the right kidney. There is mild right hydronephr osis. Kidneys are normal in size. Right kidney measures 12.8 cm long; left kidney measures 11.3 cm l [place]. Right renal cortical thickness is 1.5 cm; left renal cortical thickness is 2.1 cm. Renal corti eliza echotexture is normal. A exophytic 1.2 cm cyst is noted in mid right kidney. No suspicious solid mass lesions. Bladder: Pre-void bladder volume is 31 mL. Post-void residual is 1.5 mL. Pre-void images demonstra te no intraluminal masses or stones. On pre-void images, left ureteral jet is noted with color Doppl er interrogation. (Of note, ureteral jets may not be detectable in up to 25% of cases due to insuffi cient differences in specific gravity between ureteral and bladder urine). Echogenic foci compatible with calcification are present posterior to bladder, likely calcifications in prostate, which were se en on the comparison CT. Miscellaneous: No free pelvic fluid. IMPRESSION: 1. A 7 mm stone in the superior pole of the right kidney. There is mild right hydronephrosis, unchang ed from 06/06/2017. 2. A 1.2 cm cyst in right kidney. 3. Prostatic calcifications. Dictated by: Annette Betancourt M.D. on 06/08/2017 at 11:41 Approved by: Annette Betancourt M.D. on 06/08/2017 at 11:48
[2017-06-08] MEDS ORDERED: Promethazine Inj 25 MG in Dextrose 5%-Pha MIX 50 ML IV ONE (12:05)
[2017-06-08 12:37] LABS: APPEARANCE,URINE HAZY (CLEAR,HAZY); COLOR,URINE YELLOW (YELLOW); OCCULT BLOOD,URINE TRACE (NEGATIVE); UROBILINOGEN,URINE NORMAL (NORMAL)
[2017-06-08] MEDS ORDERED: PROM25TA14 PO (13:40)
[2017-06-08 13:49] VITALS: BP 152/90; PULSE 80; RESP 15; O2SAT 95
== END 2017-06-08 13:41 | disposition home or self-care (01) ==
LOC: SED 09:44
DX: N20.0 Calculus of kidney (principal); N23 Unspecified renal colic; E11.9 Type 2 diabetes mellitus without complications; I10 Essential (primary) hypertension; Z87.442 Personal history of urinary calculi; Z79.84 Long term (current) use of oral hypoglycemic drugs
CPT/HCPCS: 36415; 76770; 80053; 81000; 83690; 83735; 85025; 87086; 87088; 96361; 96374; 96375; 99285; J1170; J1885; J2405; J2550; J7030

== ENCOUNTER 2017-06-14 09:23 | Day surgery (SDC) | payer MEDICARE, OTHER ==
[~2017-06-14] VITALS: Ht 180.3 cm; Wt 105.5 kg
[2017-06-14] VITALS (9 sets, daily range): BP systolic 143–169; BP diastolic 83–95; PULSE 60–75; RESP 13–17; O2SAT 94–99
[~2017-06-14 09:23] MED LIST changes: +Acetaminophen IV 1,000 MG in IV Premix 1 EACH IV ONE; +Lactated Ringer's 1,000 ML IV SCH; +PROM25TA14 PO
[2017-06-14] MEDS ORDERED: fentaNYL-PF 50 mCg/mL 2 mL Inj ONE (09:24)
[2017-06-14] MEDS ORDERED: EPHEDrine/NS 5 mg/mL 5 mL Syringe ONE (09:24)
[2017-06-14] MEDS ORDERED: Ondansetron 2 mg/mL 2 mL Inj ONE (09:24)
[2017-06-14] MEDS ORDERED: Propofol 10,000 mCg/mL 20 mL Inj ONE (09:24)
[2017-06-14] MEDS ORDERED: Dexamethasone 4 mg/mL Inj ONE (09:24)
[2017-06-14] MEDS ORDERED: Lactated Ringer's 1,000 ML IV ONE (10:25)
[2017-06-14] MEDS ORDERED: Lactated Ringer's 500 ML IV PRN (11:49)
[2017-06-14] MEDS ORDERED: Lactated Ringer's 1,000 ML IV SCH (11:49)
--- NOTE | 2017-06-14 11:49 | PCM.HPANE ---
Patient Data Date of Service: Jun 14, 2017 ([id number]) Surgeon Admitting Provider: Attending Provider:Riaz Ruiz MD Primary Care Physician:Kwesi Almaraz MD Other Provider:Kadie Harrison Anesthesia Reason for Visit Right Ureteral Stone Ht/WT & BMI Height (Feet): 5 Height (Inches): 11.00 Weight (Kilograms): 105.500 Body Mass Index 32.00 Allergies Coded Allergies: No Known Allergies (Verified , 10/22/13) Past Anesthesia History Anesthesia History: Denies:: Abnormal Airway, Anesthesia Reactions, Difficult Intubation, Fam Anesthesia Reaction, Fam Malignant Hypertherm, Malignant Hyperthermia Diabetes History Hx Diabetes?: Yes (type II) Type of Diabetes: Type II Glycemic Control: Oral Medication Current Bedside Blood Glucose: 95 MRSA MRSA: No Medications Blood Thinner: Aspirin Home Meds Incl Beta Hali: No Active Scripts Promethazine 25 Mg [id number] Mg PO Q8H PRN For Nausea 7 Days Ref 0 Prov:Link Patterson DO 06/08/17 Tamsulosin (Flomax)0.4 Mg Capsule0.4 Mg PO DAILY #30 CAPSULE Prov:Vinh Nunn MD 06/06/17 Hydrocodone-Acetaminophen 5-325 mg 1 Each Tablet1 Tablet PO Q4H PRN For Pain # 10 TABLET Prov:Vinh Nunn MD 06/06/17 Ibuprofen 800 Mg [id number] Mg PO TID PRN For Pain #30 TABLET Prov:Vinh Nunn MD 06/06/17 Reported Medications Hydrocodone-Acetaminophen 5-300 mg 1 Each Tablet1 Tablet PO Q4H PRN For Pain Ref 0 03/20/17 Glyburide 2.5 Mg Tablet2.5 Mg PO BIDAC 30 Days Ref 0 03/20/17 Tamsulosin (Flomax)0.4 Mg Capsule0.4 Mg PO DAILY Ref 0 03/20/17 Telmisartan (Micardis)40 Mg [id number] Mg PO DAILY 03/20/17 Simvastatin 40 Mg [id number] Mg PO HS 30 Days Ref 0 03/20/17 Ondansetron 4 Mg Tablet4 Mg PO Q4H PRN For Nausea 03/20/17 Metformin 850 Mg [id number] Mg PO BID Ref 0 03/20/17 History History of ENT Problems?: Yes HEENT History: Positive for:: Hearing Problem Denies:: Abnormal Airway Cataracts Difficult Intubation Dysphagia Sinus Problem Denture Type: None Teeth Condition: Within Normal Limits Hx of Heart Problems?: Yes Cardiovascular History: Positive for:: Edema Hypertension Denies:: AICD Atrial Fibrillation Cardiac Surgery Chest Pain Congestive Heart Failure Heart Murmur Irregular Heartbeat Pacemaker Thrombophlebitis Valvular Heart Disease Hx of Respiratory Problem?: No Respiratory History: Denies:: Asthma COPD Cough Hemoptysis Oxygen Administration Pneumonia Tuberculosis Use of C-PAP Machine Hx Neurologic Problems?: No Neurological History: Positive for:: Dizziness Denies:: Alzheimer's Disease CVA Dementia Headaches Multiple Sclerosis Parkinson's Disease Seizures Hx of GI Problems?: Yes Hx of Problems?: Yes Genitourinary History: Positive for:: Kidney Stones (right ureteral current admission problem, surg here 03/22/17) Denies:: Urinary Tract Infection Male Hx: Denies:: Prostate Problems Scrotal Mass Testicular Surgery Skin History: Denies:: History Skin Disorders? 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) Denies:: Back Injury Musculoskeletal Trauma Systemic Lupus Hx of Psycho/Social Problems?: No Psycho Social History: Denies:: Anxiety Bipolar Disorder Hx Depression Suicide Attempt Hx Surgeries?: Yes (right partial knee, raysa, appe) Hx Any Other Health Problems?: Yes Other History: Positive for:: Cancer (BCC facial) Hospitalization Denies:: Endocrine Disease Thyroid Disease History Blood Transfusions: Denies:: Blood Transfusions Hx Diabetes: Yes (type II)Bedside Blood Glucose: 95 Hx Alcohol Use: NoHx Substance Use: No Smoking Status: Never Smoker Have You Smoked inLast 12 mo: No Stop/Bang S-Snoring: Do You Snore Loudly: No T-Tired: feel tired, fatigued: No O-Obsered: Observed not breath: No P-Blood Pressure: treated: Yes B- Body Mass Index > 35 kg/m2: Yes A- Age over 50: Yes N- Neck Large Circumference: No G- Gender Male: Yes GAMALIEL Total Score: 4 Risk Assessment Category Category 1A: Patient has history of documented sleep apnea, and HAS NOT received any narcotic, sedative or anesthesia administration during this stay. Category 1B: Patient has history of documented sleep apnea, and HAS received any narcotic , sedative or anesthesia administration during this stay Category 2: Patient has SUSPECTED Obstructive Sleep Apnea, and HAS received any narcotic , sedative or anesthesia administration during this stay. Category 3: Patient has SUSPECTED Obstructive Sleep Apnea and HAS NOT received narcotic, sedative or anesthesia administration during this stay. Category 4: Outpatient in Procedural Areas with known sleep apnea or who screen positive for High Risk via the STOP/BANG questionnaire. Exam Exam Vital Signs Vital Signs Date Time Temp Pulse Resp B/P Pulse Ox O2 Delivery O2 Flow Rate FiO2 06/14/17 09:54 36.1 60 16 159/85 99 Room Air General Appearance: Alert, Oriented X3, Cooperative HEENT/AIRWAY: MP 2 Lungs: Clear to Auscultation Heart: Exam Unremarkable Meds/Labs/Diagnostics Admission Meds Current Medications Acetaminophen 1000 mg/Premix 100 ml @ 400 mls/hr PREOP ONCE IV Last administered on 06/14/17 11:14; Start 06/14/17 at 06:00; Stop 06/14/17 at 06:14 ; Status DC Lactated Ringer's (Lr) 1,000 ml @ ud STK-MED ONCE IV Last administered on 06/14 10:25; Start 06/14/17 at 10:25; Stop 06/14/17 at 10:26; Status DC Bedside Blood Glucose: 95 Plan Impression Patient chart reviewed, patient interviewed and anesthestic plan with risks, benefits, and alternatives discussed, and informed consent obtained. NPO per Anesth. Guidelines: Yes ASA Physical Status: ASA2 Mod Systemic Disease Anesthetic Plan: GA Bene/Risks/Altern/Consents: Yes HP Complete Prior to Induction: Yes Alli Moreno MD Jun 14, 2017 11:49
[2017-06-14] MEDS ORDERED: Phenylephrine 10,000 mCg/mL Inj IVPUSH PRN (11:50)
[2017-06-14] MEDS ORDERED: MetoCLOpramide 5 mg/mL 2 mL Inj IVPUSH PRN (11:50)
[2017-06-14] MEDS ORDERED: HYDROmorphone 1 mg/mL Inj IVPUSH PRN (11:50)
[2017-06-14] MEDS ORDERED: Ondansetron 2 mg/mL 2 mL Inj IVPUSH PRN (11:50)
[2017-06-14] MEDS ORDERED: EPHEDrine Sulfate 50 mg/mL Inj IVPUSH PRN (11:50)
[2017-06-14] MEDS ORDERED: Dexamethasone 4 mg/mL Inj IVPUSH PRN (11:50)
[2017-06-14] MEDS ORDERED: fentaNYL-PF 50 mCg/mL 2 mL Inj IVPUSH PRN (11:50)
--- NOTE | 2017-06-14 13:06 | DRSVH ---
PROCEDURE: X-RAY KUB ([id number]) INDICATIONS: KIDNEY STONE TECHNIQUE: One view of the abdomen acquired. COMPARISON: [facility], CT, CT KUB, 06/06/2017, 9:00. [facility], CR, XR KUB , 03/22/2017, 13:26. FINDINGS: Surgical changes and devices: Cholecystectomy clips. Bowel: Bowel gas pattern is normal. Soft tissues: No suspicious abdominal calcifications. Visualized solid organ contours appear normal in size. Small inferior pole left renal calcification. Bones: No suspicious bony lesions. IMPRESSION: 4 mm calcification projected over the lower pole of the left kidney. Dictated by: Markus FERRER Interpreted: Noel Lomeli MD on 06/14/2017 at 10:46 Approved by: Noel Lomeli M.D. on 06/14/2017 at 13:04
[2017-06-14] MEDS ORDERED: Furosemide 10 mg/mL 2 mL Inj IV ONE (13:30)
--- NOTE | 2017-06-14 13:35 | PCM.ANEP1 ---
Post Anesthesia PACU Phase 1 Assessment Vital Signs 155/87, 76, 16, 97%, 36.1 Vital Signs Date Time Temp Pulse Resp B/P Pulse Ox O2 Delivery O2 Flow Rate FiO2 06/14/17 09:54 36.1 60 16 159/85 99 Room Air Anesthetic Administered: GA Level of Alertness: Awake, talking TRISTAN's with Equal Strength: Yes Pain: No Nausea or Vomiting: No CV Function & Hydration Stable: Yes Airway Device: none Oxygen Delivery: Simple Mask Lungs: Clear to Auscultation Dermatome Level: Full Sensation Summary Uneventful GA PACU Phase 2 Assessment Complications: No Follow up Care: No Patient Instructions Provided: N/A Alli Moreno MD Jun 14, 2017 13:35
--- NOTE | 2017-06-22 19:47 | OP ---
[address] [address] OPERATIVE REPORT PATIENT: GEOFFREY MORLEY : 1945 MR#: [id number] ADMIT: 06/14/2017 JOB ID: [id number] DATE OF SURGERY: 06/14/2017 SURGEON: Riaz Ruiz MD. PREOPERATIVE DIAGNOSIS(ES): 1. Right mid ureteral calculus. 2. Right renal colic. 3. Right nephrolithiasis. POSTOPERATIVE DIAGNOSIS(ES): 1. Right mid ureteral calculus. 2. Right renal colic. 3. Right nephrolithiasis. OPERATION PERFORMED: 1. Cystoscopy with right retrograde pyelogram. 2. Right extracorporeal shock wave lithotripsy (maximal power level of 5.0 x 2500 shocks). ANESTHESIA: General. PROCEDURE SUMMARY: The patient was positioned supine. Was administered general anesthesia. A deliberate and exhaustive search for the presence of a stone correlating fluoroscopic imaging with CT scan was then performed because plain radiograph performed immediately preoperatively failed to demonstrate radio-opaque density. The stone could not be identified without contrast. Therefore the patient was repositioned in semi-lithotomy. Lower abdomen, genitalia, and groin were prepped and draped in sterile fashion. A 22-Kyrgyz panendoscope was then passed in the lower urinary tract with findings of a normal urethra. External sphincter was intact. Prostate was 4.5 cm long with moderate lateral lobe hyperplasia. Bladder 1+ trabeculation. Normal orifices bilaterally. No visualized stone or tumor or diverticulum. A 5-Kyrgyz Pollack catheter was then selected. This was advanced into the right collecting system under direct and fluoroscopic guidance with proximal tip near the level of the stone's expected position in the mid right ureter. Retrograde pyelography then indeed identified an abrupt tapered narrowing and filling defect adjacent to the L3-L4 interspace. The patient was then repositioned supine and the above-described stone was then localized using retrograde pyelography intermittently to initiate the case and then periodically throughout the case to assess treatment progress. A total of 2500 shocks were delivered. Maximal power of 5.0. The ureteral catheter was then removed. The patient was awakened, transferred to [facility], and transported to recovery in stable condition. CC: Primary care physician as listed on face sheet.
== END 2017-06-14 23:59 | disposition home or self-care (01) ==
LOC: SAS 09:23
PROVIDERS: ATTEND Specialist
DX: N20.2 Calculus of kidney with calculus of ureter (principal); I10 Essential (primary) hypertension; E11.9 Type 2 diabetes mellitus without complications; M19.90 Unspecified osteoarthritis, unspecified site; Z96.652 Presence of left artificial knee joint; Z87.442 Personal history of urinary calculi; Z79.84 Long term (current) use of oral hypoglycemic drugs
CPT/HCPCS: 50590; 74000; J0131; J1100; J1940; J2250; J2405; J3010; J7120